=== PATIENT | female | born 1995 | race African-American/Black ===

== ENCOUNTER 2024-09-19 13:01 | Inpatient (IN) | payer BC ==
[2024-09-19] MEDS ORDERED: hydrALAZINE 20 MG/ML VIAL SLOW IVP PRN ×2 (14:55→17:19)
[2024-09-19 16:43] LABS: Fetal Membranes Rupture RUPTURE DETECTED (No Rupture)
[2024-09-19] MEDS ORDERED: Promethazine HCl 25 MG/ML VIAL IM PRN ×2 (17:19→20:25)
[2024-09-19] MEDS ORDERED: Carboprost 250 MCG/ML AMP IM PRN (17:19)
[2024-09-19] MEDS ORDERED: Methylergonovine 0.2 MG/ML VIAL IM PRN (17:19)
[2024-09-19] MEDS ORDERED: Misoprostol 200 MCG TAB PR PRN (17:19)
[2024-09-19] MEDS ORDERED: fentaNYL 50 mcg/mL 1 mL Vial SLOW IVP PRN (17:19)
[2024-09-19] MEDS ORDERED: Diphenoxylate HCl/Atropine Tablet PO PRN (17:19)
[2024-09-19] MEDS ORDERED: Tranexamic Acid 1,000 MG/10 ML VIAL IVP PRN (17:19)
[2024-09-19] MEDS ORDERED: HYDROcodone/Acetaminophen 5/325 mg Tablet PO PRN (17:21)
[2024-09-19] MEDS ORDERED: Lidocaine 1% (PF) 30 ML VIAL SC PRN (17:21)
[2024-09-19] MEDS ORDERED: Ibuprofen 800 MG TAB PO PRN (17:21)
[2024-09-19] MEDS ORDERED: Penicillin G Potassium 5 MILL.UNITS in Sodium Chloride 0.9% 100 ML IVPB SCH (17:30)
[2024-09-19 17:51] VITALS: BMI 26.5
[2024-09-19 19:39] LABS: Hematocrit 33.1 % (34.9-44.5); Hemoglobin 9.5 g/dL (12.0-15.5); Mean Corpuscular HGB CONC 28.7 g/dL (32.0-36.0); Mean Corpuscular Hemoglobin 19.3 pg (27.0-33.0); Mean Corpuscular Volume 67.1 fL (81.6-98.3); Platelet Count 218 10x3/uL (150-450); RBC Distribution Width 19.8 % (11.5-14.5); Red Blood Cell (RBC) Count 4.93 10x6/uL (3.90-5.03); White Blood Cell (WBC) Count 11.6 10x3/uL (3.5-10.5)
[2024-09-19] MEDS: fentaNYL/Ropivacaine Epidural 100 ML ONE (20:13)
[2024-09-19] MEDS ORDERED: Naloxone HCl 0.4 mg/ml Vial IVP PRN ×2 (20:25)
[2024-09-19] MEDS ORDERED: Lactated Ringer's 500 ML IV PRN (20:25)
[2024-09-19] MEDS ORDERED: diphenhydrAMINE 50 MG/ML VIAL IVP PRN (20:25)
[2024-09-19] MEDS ORDERED: Ondansetron PF 4 MG/2 ML Vial IVP PRN (20:25)
[2024-09-19] MEDS ORDERED: Moisturizing Cream (Eucerin) 113 GM JAR TOP PRN (20:25)
[2024-09-19] MEDS ORDERED: Acetaminophen 325 MG TAB PO PRN (20:25)
[2024-09-19] MEDS ORDERED: ePHEDrine Sulfate 50 MG/10 ML VIAL SLOW IVP PRN (20:25)
[2024-09-19] MEDS ORDERED: Communication Order-Pharmacy FS SCH (20:30)
[2024-09-19] MEDS ORDERED: fentaNYL 2 mcg/Ropivacaine 0.2% Epidural 100 ML CADD EPIDURAL SCH (20:30)
[2024-09-19 21:50] LABS: Syphilis Antibody Nonreactive (Nonreactive); Syphilis Antibody Index 0.09 S/CO (<1.00 Non-Reactive)
[2024-09-19 21:51] LABS: HBsAg Index 0.22 S/CO (0-0.99); Hep B Surf Ag - L&D Non-Reactive S/CO (NonReactive)
[2024-09-19] MEDS: Penicillin G 2.5 MILL.units 2.5 MILL.UNITS in Premix 1 BAG IVPB SCH (21:56)
[2024-09-19] MEDS: Lactated Ringer's 1,000 ML IV SCH (23:44)
[2024-09-20] MEDS: Ondansetron PF 4 MG/2 ML Vial IVP PRN (02:05)
[2024-09-20] MEDS ORDERED: Milk Of Magnesia 30 ML UDCUP PO PRN (04:38)
[2024-09-20] MEDS ORDERED: Preparation H Ointment 28 GM TUBE PR PRN (04:38)
[2024-09-20] MEDS ORDERED: Benzocaine-Menthol 82.5 ML CAN TOP PRN (04:38)
[2024-09-20] MEDS ORDERED: hydrALAZINE 20 MG/ML VIAL SLOW IVP PRN (04:38)
[2024-09-20] MEDS ORDERED: HYDROcodone/Acetaminophen 5/325 mg Tablet PO PRN (04:38)
[2024-09-20] MEDS ORDERED: Zolpidem Tartrate 5 MG TAB PO PRN (04:38)
[2024-09-20] MEDS ORDERED: Bisacodyl 10 MG SUPP PR PRN (04:38)
[2024-09-20] MEDS ORDERED: Lanolin Ointment 7 GM TUBE TOP PRN (04:38)
[2024-09-20] MEDS: Oxytocin 30 units/NS 500 ML 500 ML IV SCH (04:42)
[2024-09-20 04:46] LABS: Analyzer IN Cardio CS NICU; Critical Notified By: clumpkins rt; Critical Notified Whom: Roman MD; RapidComm Collect By LDRN; pH (Cord, venous) 7.276 (7.250-7.350)
[2024-09-20] MEDS: Penicillin G Potassium 5 MILL.UNITS VIAL ONE (07:24)
[2024-09-20] MEDS: Boostrix 0.5 ML (Tdap) VIAL (>/=7 yrs of age) IM ONE (07:24)
[2024-09-20] MEDS: Ferrous Sulfate 325 MG TAB PO SCH (09:13)
[2024-09-20] MEDS: Docusate 100 MG CAP PO SCH (09:13)
[2024-09-20] MEDS: Prenatal Vitamin 1 TAB PO SCH (09:13)
[2024-09-20] MEDS: Ibuprofen 800 MG TAB PO SCH ×2 (09:14→16:30)
[2024-09-21 04:06] LABS: Hematocrit 26.3 % (34.9-44.5); Hemoglobin 7.4 g/dL (12.0-15.5)
[2024-09-21 08:03] VITALS: BP 99/59; TEMP 97.7
== END 2024-09-21 13:50 | disposition home or self-care (01) | DRG 807 ==
LOC: CSHLD/OP 13:01 → CSHLD 17:19 → CSHPP 09-20 06:43
PROVIDERS: ADMIT Obstetrics & Gynecology; ATTEND Obstetrics & Gynecology
PROC: 10E0XZZ Delivery of Products of Conception, External Approach (ICD-10-PCS; principal; 2024-09-19)
DX: O34.219 Maternal care for unspecified type scar from previous cesarean delivery (principal); Z37.0 Single live birth; N85.8 Other specified noninflammatory disorders of uterus; Z3A.39 39 weeks gestation of pregnancy; Z82.49 Family history of ischemic heart disease and other diseases of the circulatory system; O99.824 Streptococcus B carrier state complicating childbirth; O99.02 Anemia complicating childbirth
CPT/HCPCS: 36415; 51702; 82805; 84112; 85014; 85018; 85027; 86780; 86850; 86900; 86901; 87340; 99285; J2405; J2540; J2590; J7120